=== PATIENT | male | born 1980 | race Caucasian/White ===

== ENCOUNTER 2017-01-27 12:01 | Emergency (ER) | payer MEDICAID, OTHER ==
[~2017-01-27] VITALS: Ht 172.7 cm; Wt 103.5 kg
[2017-01-27 12:05] VITALS: Ht 172.7 cm; Wt 103.5 kg
[2017-01-27] MEDS ORDERED: SOD CHLORIDE 0.9% 1,000 ML IV ONE (12:30)
[2017-01-27] MEDS ORDERED: morphine 4 MG/ML VIAL IV STA (12:30)
[2017-01-27] MEDS ORDERED: ONDANSETRON 4 MG INJ IV STA ×2 (12:30→18:04)
--- NOTE | 2017-01-27 12:59 | ERD ---
ER Documentation Chief Complaint Chief Complaint left facial swelling, taking antibiotics for it not improving x 4 days HPI This is a 36-year-old male who presents the emergency department today complaining of left-sided pain and swelling for the past 4 days that is getting worse. Patient states that the pain started 4 days ago and the next night overnight it got worse he went to the [facility]. States that he was told he had a dental infection that was turning to an abscess and was given antibiotics but was not admitted to the hospital was seen by the dental department. States that he was not able to receive treatment from the [facility] but that he was given antibiotics. Patient states he has been taking the amoxicillin, ibuprofen and Tylenol. States the same day he went to the [facility] and was given an appointment for next week. States he has pain with eating but is able to tolerate soup and liquids. Denies any fevers or chills. ROS All systems reviewed and are negative except as per history of present illness. Medications Home Meds No Active Prescriptions or Reported Meds Allergies Allergies: Coded Allergies: No Known Allergy (Unverified , 09/24/12) PMhx/Soc Medical and Surgical Hx: pt denies Medical Hx, pt denies Surgical Hx History of Surgery: No Anesthesia Reaction: No Hx Neurological Disorder: No Hx Respiratory Disorders: No Hx Cardiac Disorders: No Hx Psychiatric Problems: No Hx Miscellaneous Medical Probl: No Hx Alcohol Use: No Hx Substance Use: No Hx Tobacco Use: No Physical Exam Vitals Vital Signs Date Time Temp Pulse Resp B/P Pulse Ox O2 Delivery O2 Flow Rate FiO2 01/27/17 12:05 99.2 111 18 149/88 99 Physical Exam Const: NAD Head: Atraumatic . Left sided facial swelling with firmness and induration. Bilateral orbital swelling. Eyes: Normal Conjunctiva ENT: Normal External Ears, Nose and Mouth. Uvula midline. Poor dentition. Neck: Full range of motion..~ No meningismus. Resp: Clear to auscultation bilaterally Cardio: Regular rate and rhythm, no murmurs Abd: Soft, non tender, non distended. Normal bowel sounds Skin: No petechiae or rashes Neur: Awake and alert Psych: Normal Mood and Affect Result Diagram: 01/27/17 1250 01/27/17 1250 Results 24 hrs Laboratory Tests Test 01/27/17 12:50 White Blood Count 16.910^3/ul Red Blood Count 5.0610^6/ul Hemoglobin 14.7g/dl Hematocrit 43.8% Mean Corpuscular Volume 86.6fl Mean Corpuscular Hemoglobin 29.1pg Mean Corpuscular Hemoglobin Concent 33.6g/dl Red Cell Distribution Width 12.8% Platelet Count 63483^3/UL Mean Platelet Volume 10.2fl Neutrophils % 84.8% Lymphocytes % 7.3% Monocytes % 7.0% Eosinophils % 0.3% Basophils % 0.2% Nucleated Red Blood Cells % 0.0/100WBC Neutrophils # 14.310^3/ul Lymphocytes # 1.210^3/ul Monocytes # 1.210^3/ul Eosinophils # 0.110^3/ul Basophils # 0.010^3/ul Nucleated Red Blood Cells # 0.010^3/ul Sodium Level 141mmol/L Potassium Level 4.0mmol/L Chloride Level 102mmol/L Carbon Dioxide Level 28mmol/L Anion Gap 15 Blood Urea Nitrogen 10mg/dl Creatinine 1.02mg/dl Glucose Level 96mg/dl Calcium Level 9.6mg/dl Total Bilirubin 1.4mg/dl Direct Bilirubin 0.00mg/dl Indirect Bilirubin 1.4mg/dl Aspartate Amino Transf (AST/SGOT) 59IU/L Alanine Aminotransferase (ALT/SGPT) 79IU/L Alkaline Phosphatase 114IU/L Total Protein 8.5g/dl Albumin 4.4g/dl Globulin 4.10g/dl Albumin/Globulin Ratio 1.07 Current Medications Medications (Trade) Dose Ordered Sig/Blanco Route PRN Reason Start Time Stop Time Status Last Admin Dose Admin Morphine Sulfate (morphine) 4 mg ONCE STAT IV 01/27/17 12:30 01/27/17 12:34 DC 01/27/17 12:51 Ondansetron HCl 4 mg 4 mg ONCE STAT IV 01/27/17 12:30 01/27/17 12:34 DC 01/27/17 12:50 Sodium Chloride (NS) 1,000 ml @ 1,000 mls/hr Q1H ONCE IV 01/27/17 12:30 01/27/17 13:29 DC 01/27/17 12:53 Clindamycin Phosphate 600 mg 600 mg ONCE ONCE IV 01/27/17 12:30 01/27/17 12:34 DC Clindamycin HCl/ Dextrose (Cleocin 600 Mg/ D5W (Pmx)) 50 ml @ 50 mls/hr ONCE IVPB 01/27/17 13:00 01/27/17 13:59 DC 01/27/17 13:02 IV Flush 10 ml 10 ml STK-MED ONCE .ROUTE 01/27/17 13:48 01/27/17 13:49 DC Sodium Chloride (NS) 100 ml @ ud STK-MED ONCE .ROUTE 01/27/17 13:48 01/27/17 13:49 DC Iohexol (Omnipaque 300mg/ ml) 150 ml STK-MED ONCE .ROUTE 01/27/17 13:48 01/27/17 13:49 DC 01/27/17 14:14 DIAGNOSTIC IMAGING REPORT Patient: SARAH BETH JAIN : 1980 Age: 36 Sex: M MR #: [id number] DOS: 01/27/17 1234 Ordering MD: KRIS KRAMER PA-C Location: [facility] Room/Bed: PROCEDURE: CT Maxillofacial with Contrast CLINICAL INDICATION: Left-sided facial pain and swelling with dental infection TECHNIQUE: Transaxial images were obtained through the maxillofacial region on a multi-slice scanner following intravenous administration of 80 ml of Omnipaque-300 contrast. Sagittal and coronal re-formations were subsequently reconstructed. One or more of the following dose reduction techniques were used: - Automated exposure control. - Adjustment of the mA and/or kV according to patient size. - Use of iterative reconstruction technique. Radiation dose: CTDIvol = 192.00 mGy; DLP = 1119.36 mGy-cm. COMPARISON: No prior studies are available for comparison. FINDINGS: Osseous structures: There is nik apical lucency an erosion of the root of the left most posterior inferior molar suspicious for a nik apical abscess. There is slight lucency about the root of the left lower second to the last molar and a cavity within the crown. There is an impacted right lower wisdom tooth. The osseous elements are otherwise intact. Paranasal sinuses: There is mucoperiosteal thickening involving ethmoid air cells bilaterally. There is minimal mucoperiosteal thickening involving the sphenoid sinus, the floor of the maxillary sinuses, and the floor of the frontal sinuses bilaterally. Mastoid air cells: The incompletely visualized mastoid air cells are well- aerated. Temporomandibular joints: Appear unremarkable. Orbits: The ocular globes, optic nerves, and intraorbital contents appear unremarkable. Soft tissues: There is increased thickness to the left mass there muscle compatible with inflammatory change. There is thickening of the left mucosal pharyngeal space with no discrete abscess evident. There is stranding within the subcutaneous fat lateral to the left mandible and maxilla. A 1 cm in short diameter left anterior submandibular node is evident. An 8 mm posterior submandibular noted is identified. No abscess is evident. The major vessels are patent. IMPRESSION: 1. There is erosion of the root of the left lowermost posterior molar with nik -apical lucency suspicious for a nik-apical abscess. There is slight nik- apical lucency of the second to the last left inferior molar with a cavity seen within the crown of the molar. There is an impacted right lower wisdom tooth. The osseous elements otherwise appear intact. 2. There is increased bulk and decreased density to the left mastoid or muscle compatible with myositis. 3. There is soft tissue thickening regarding the left mucosal pharyngeal space with no discrete abscess evident. 4. There is stranding of the subcutaneous fat within the soft tissues about the left mandible and maxilla compatible with cellulitis. 5. There is left submandibular adenopathy. 6. Mild inflammatory changes involving the paranasal sinuses. Physician Jonelle Date Time Electronically viewed and signed by Physician Jonelle on 01/27/2017 14:52 RH/ CC: KRIS KRAMER PA-C Procedures/MDM This is a 36-year-old male who presents the emergency department today complaining of left-sided facial pain and swelling for the past 4 days. [facility] however he presents today as he was told to come to the emergency department for any persistent or worsening of symptoms. Patient indicated that the swelling was getting worse despite being on antibiotics. Patient had been given a prescription for amoxicillin ibuprofen and Tylenol that he states he is taking. Patient is afebrile and otherwise well-appearing. He is tachycardic however on physical exam he has a significant amount of left-sided facial swelling as well as swelling around both of his orbits and given this physical exam I did obtain laboratory workup as well as imaging. Laboratory workup elevated white blood cell count is 16.9. He is not anemic. Platelets are within normal limits. Electrolytes are within normal limits. Glucose is within normal limits. Liver enzymes are mildly elevated. CT facial bones with contrast shows erosion of the root of the left lower most posterior molar with periapical lucency suspicious for a periapical abscess. There is a slight periapical lucency of the second to last inferior molar with a cavity seen within the crown of the molar. There is an impacted right lower wisdom tooth. Osseous elements appear otherwise intact. There is increased bulk and decreased density to the left mastoid air muscle compatible with myositis. There is soft tissue thickening regarding the left mucosal pharyngeal space with no discrete abscess evident. There is stranding of the subcutaneous fat within the soft tissues about the left mandible and maxilla compatible with cellulitis. There is a left submandibular adenopathy. There are mild inflammatory changes involving the paranasal sinuses. Patient was also given morphine, zofran, fluids and IV clindamycin. Symptoms at this time is consistent with facial cellulitis secondary to dental abscess I discussed the patient with who feels that the patient will require admission however we do not have oral maxillofacial surgery here in this hospital and patient will need to be transferred. Patient was pending transfer at time of signout to Dr. Colvin Departure Diagnosis: Primary Impression: Facial cellulitis Condition: KRIS Mari PA-C Jan 27, 2017 12:59
[2017-01-27] MEDS ORDERED: CLINDAMYCIN 600 MG/D5W (PMX) 50 ML IVPB SCH (13:00)
[2017-01-27] MEDS: CLINDAMYCIN 300 MG INJ IV ONE ×2 (13:00→13:03)
[2017-01-27] MEDS ORDERED: SOD CHLORIDE 0.9% 100 ML ONE (13:48)
[2017-01-27] MEDS ORDERED: IOHEXOL 300MG/ML 150 ML BTL ONE (13:48)
--- NOTE | 2017-01-27 14:52 | RADRPT ---
PROCEDURE: CT Maxillofacial with Contrast CLINICAL INDICATION: Left-sided facial pain and swelling with dental infection TECHNIQUE: Transaxial images were obtained through the maxillofacial region on a multi-slice scan er following intravenous administration of 80 ml of Omnipaque-300 contrast. Sagittal and coronal re- formations were subsequently reconstructed. One or more of the following dose reduction techniques were used: - Automated exposure control. - Adjustment of the mA and/or kV according to patient size. - Use of iterative reconstruction technique. Radiation dose: CTDIvol = 192.00 mGy; DLP = 1119.36 mGy-cm. COMPARISON: No prior studies are available for comparison. FINDINGS: Osseous structures: There is nik apical lucency an erosion of the root of the left most posterior i nferior molar suspicious for a nik apical abscess. There is slight lucency about the root of the le ft lower second to the last molar and a cavity within the crown. There is an impacted right lower wi sdom tooth. The osseous elements are otherwise intact. Paranasal sinuses: There is mucoperiosteal thickening involving ethmoid air cells bilaterally. There is minimal mucoperiosteal thickening involving the sphenoid sinus, the floor of the maxillary sinus es, and the floor of the frontal sinuses bilaterally. Mastoid air cells: The incompletely visualized mastoid air cells are well-aerated. Temporomandibular joints: Appear unremarkable. Orbits: The ocular globes, optic nerves, and intraorbital contents appear unremarkable. Soft tissues: There is increased thickness to the left mass there muscle compatible with inflammator y change. There is thickening of the left mucosal pharyngeal space with no discrete abscess evident. There is stranding within the subcutaneous fat lateral to the left mandible and maxilla. A 1 cm in short diameter left anterior submandibular node is evident. An 8 mm posterior submandibular noted is identified. No abscess is evident. The major vessels are patent. IMPRESSION: 1. There is erosion of the root of the left lowermost posterior molar with nik-apical lucency susp icious for a nik-apical abscess. There is slight nik-apical lucency of the second to the last left inferior molar with a cavity seen within the crown of the molar. There is an impacted right lower w isdom tooth. The osseous elements otherwise appear intact. 2. There is increased bulk and decreased density to the left mastoid or muscle compatible with myos itis. 3. There is soft tissue thickening regarding the left mucosal pharyngeal space with no discrete abs cess evident. 4. There is stranding of the subcutaneous fat within the soft tissues about the left mandible and m axilla compatible with cellulitis. 5. There is left submandibular adenopathy. 6. Mild inflammatory changes involving the paranasal sinuses. Physician Jonelle Date Time Electronically viewed and signed by Chapincito Mann Physician on 01/27/2017 14:52 /
[2017-01-27] MEDS ORDERED: HYDROmorphONE 1 MG/ML SYG IV STA (18:04)
[2017-01-28] MEDS ORDERED: PIPER-TAZO 3.375 GM IV (PMX) 50 ML IVPB STA (07:06)
[2017-01-28] MEDS ORDERED: VANCOMYCIN 1 GM (PMX) 250 ML IVPB ONE (07:30)
[2017-01-28] MEDS ORDERED: HYDROmorphONE 1 MG/ML SYG IV STA ×2 (09:15→13:27)
[2017-01-28] MEDS ORDERED: ONDANSETRON 4 MG INJ IV STA ×2 (09:15→13:27)
[2017-01-28] MEDS ORDERED: SODIUM CHLORIDE 0.9% 1L BAG IV* STA (10:40)
[2017-01-28] MEDS ORDERED: ACETAMINOPHEN 500 MG TAB ONE (11:02)
[2017-01-28] MEDS ORDERED: ACETAMINOPHEN 500 MG TAB PO STA (11:16)
--- NOTE | 2017-01-28 12:58 | EN ---
Date/Time of Note Date/Time of Note DATE: 01/28/17 TIME: 12:55 ER Progress Note Please note that this is a 36-year-old patient that had been seen and evaluated by the previous ER physician. When I arrived for my shift at 6 AM the patient was currently awaiting transfer for higher level of care as the patient required an oral maxillofacial surgeon due to facial cellulitis with concerns of impending abscess formation that could require surgical drainage. I repeated the patient's ancillary laboratory work and he still had a leukocytosis. He had received IV clindamycin however no blood cultures were obtained prior to him receiving antibiotics. He had been in the emergency department for over 19 hours while he was awaiting transfer. I did obtain blood cultures and broaden his spectrum of antibiotics giving him vancomycin and Zosyn. The patient had trismus but his airway was intact. There is no signs of Josep's angina. I repeated physical exam under the HEENT and the patient had no bulging erythremia of the left or right tympanic membrane to suggest mastoiditis. I had spoken with the on-call ENT physician who was also in agreement that this patient would require higher level of care as this was a dental infection with facial cellulitis involving the left mandible and maxilla. Unit clerks were very diligent and were able to arrange transfer to [facility] for higher level of care. I repeated multiple bedside examinations on the patient and at 1257 we did get confirmation of the care being transferred to [facility] and again at this time I repeated the physical exam and the patient still had trismus but no impending airway failure. There is no changes in phonation, no stridor, no hypoxia and I did feel the patient was stable at this time for transfer for higher level of care. ARAM MISTRY Jan 28, 2017 12:58
[2017-01-28 13:20] VITALS: BP 150/83; PULSE 115; RESP 18; TEMP 101
[2017-01-28] MEDS ORDERED: KETOROLAC 30 MG INJ IV STA (13:46)
== END 2017-01-28 14:27 | disposition short-term general hospital (02) ==
LOC: FTE 12:01 → E/R 01-28 14:27
DX: L03.211 Cellulitis of face (principal)
CPT/HCPCS: 36415; 70486; 80053; 85025; 87040; 96374; 96375; 96376; J1170; J1885; J2270; J2405; J2543; J3370; J7030; Q9967; Z7502; Z7610

== ENCOUNTER 2018-10-01 16:03 | Emergency (ER) | payer MEDICAID, OTHER ==
[~2018-10-01] VITALS: Ht 162.6 cm; Wt 89.0 kg
[~2018-10-01 16:03] MED LIST: CARB15DR50 LEFT EAR; IBUP-1542 PO
[2018-10-01 16:05] VITALS: BP 146/73; PULSE 71; RESP 18; Ht 162.6 cm; Wt 89.0 kg
[2018-10-01] MEDS ORDERED: KETOROLAC 30 MG INJ IM STA (16:33)
[2018-10-01] MEDS ORDERED: IBUP-1542 PO (16:54)
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
== END 2018-10-01 17:13 | disposition home or self-care (01) ==
LOC: FTE 16:03
DX: S39.012A Strain of muscle, fascia and tendon of lower back, initial encounter (principal); V79.59XA Passenger on bus injured in collision with other motor vehicles in traffic accident, initial encounter
CPT/HCPCS: 96372; J1885